=== PATIENT | female | born 1945 | race Caucasian/White ===

== ENCOUNTER → 2017-04-03 | Outpatient (CLI) | payer OTHER ==
[~2017-04-03] MED LIST: ALBU8.5H5 INH; LEVO750T26 PO; LEVO75TA5 PO; LOSA25TA5 PO; METO25TA35 PO; ONDA4TAB10 PO; PRED20TA PO; SIMV10TA3 PO; TIOT18CA INH
== END | disposition home or self-care (01) ==
LOC: CFH 10:38
PROVIDERS: ATTEND Internal Medicine
DX: J44.9 Chronic obstructive pulmonary disease, unspecified (principal)
CPT/HCPCS: 71250